=== PATIENT | female | born 1995 | race Hispanic/Latino ===

== ENCOUNTER 2020-09-15 16:37 | Emergency (ER) | payer SELFPAY ==
--- OUTSIDE RECORDS SUMMARY | 2020-09-15 16:41 | XMS REPORT | Continuity of Care Document ---
:1995 Author Organization [facility] t Address [address] [place] [address] Care Team Providers Name Role Phone Unavailable Unavailable Unavailable Problems This patient has no known problems. Allergies, Adverse Reactions, Alerts This patient has no known allergies or adverse reactions. Medications Ordered Filled Start Stop Current Ordering Indication Dosage Frequency Signature Comments Components Source Medication Medication Date Date Medication? Clinician (SIG) Name Name Paroxetine Paroxetine Yes Jessie [address] [facility] 7-03 [facility] morning [address] [facility] Procedures This patient has no known procedures. Encounters Start End Encounter Admission Attending Care Care Encounter Source Date/Time Date/Time Type Type Clinicians Facility Department ID 2020-01-20 2020-01-20 Outpatient [facility] [id number] [facility] 2019-03-02 2019-03-02 [facility] [id number] [facility] 16:00:00 16:00:00 [facility] Medicine Medicine Outpati ent Clinics 2018-10-14 2018-10-14 [facility] [id number] [facility] 11:20:00 11:20:00 [facility] Medicine Medicine Outpati ent Clinics Results This patient has no known results.
--- NOTE | 2020-09-15 17:24 | EDPHYS ---
Physician Documentation [facility] Name: Steff Nation Age: 25 yrs Sex: Female : 1995 Arrival Date: 09/15/2020 Time: 16:40 Bed 24 Private MD: ED Physician Babatunde Garces HPI: 09/15 17:17 This 25 yrs old Female presents to ER via Ambulatory with complaints of jmm Laceration To Leg. 17:17 Onset: The symptoms/episode began/occurred acutely, just prior to arrival. Associated jmm signs and symptoms: Pertinent negatives: deformity, dizziness, heavy bleeding, loss of consciousness, numbness distal to injury, suspected foreign body. The patient has not experienced similar symptoms in the past. Patient states she dropped a beer bottle which shattered and then cut her leg. Unsure on tetanus immunizations. . 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 - Social history:: Smoking status: Reported history of juuling and/or vaping. ROS: 17:17 Constitutional: Negative for fever, chills, and weight loss, Cardiovascular: Negative jmm for chest pain, palpitations, and edema, Respiratory: Negative for shortness of breath, cough, wheezing, and pleuritic chest pain. 17:17 Skin: Positive for laceration(s). 17:17 All other systems are negative. Exam: 17:17 Constitutional: This is a well developed, well nourished patient who is awake, alert, jmm and in no acute distress. Head/Face: atraumatic. Eyes: EOMI, no conjunctival erythema appreciated ENT: Moist Mucus Membranes Neck: Trachea midline, Supple Chest/axilla: Normal chest wall appearance and motion. Cardiovascular: Regular rate and rhythm. No edema appreciated Respiratory: Normal respirations, no respiratory distress appreciated Abdomen/GI: Non distended, soft Back: Normal ROM 17:17 Skin: 4 cm laceration noted to the left lower leg. 17:17 Neuro: Orientation: is normal, Mentation: is normal, Memory: is normal. 17:17 Psych: Behavior/mood is pleasant, cooperative. Vital Signs: 16:46 BP 136 / 83; Pulse 100; Resp 18 S; Temp 97.8(TE); Pulse Ox 100% on R/A; Weight 58.97 kg jd3 (R); Height 5 ft. 4 in. (162.56 cm) (R); Pain 1/10; 16:46 Body Mass Index 22.31 (58.97 kg, 162.56 cm) jd3 Laceration: 17:18 Wound Repair of 4cm ( 1.6in ) subcutaneous laceration to left leg. Distal jmm neuro/vascular/tendon intact. Anesthesia: Local anesthetic administered with 8 mls of 1% lidocaine. Wound prep: Moderate cleansing with betadine by me. Skin closed with 6 4-0 Prolene using simple sutures and sterile technique. Patient tolerated well. MDM: 17:17 Patient medically screened. [facility] 17:19 Data reviewed: vital signs, nurses notes. Counseling: I had a detailed discussion with wendy the patient and/or guardian regarding: the historical points, exam findings, and any diagnostic results supporting the discharge/admit diagnosis, the need for outpatient follow up, to return to the emergency department if symptoms worsen or persist or if there are any questions or concerns that arise at home. ED course: Patient is alert and non toxic in appearance ni the ED. Patient given wound infection return precautions. patient understood and agrees with the plan of care. . 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 Exp: ph 09/17/2021. Lot #: [id number]. } Route: IM; Site: right deltoid; Disposition: 18:44 Co-signature as Attending Physician, Babatunde Garces MD I agree with the assessment and kdr plan of care. Disposition: 09/15/20 17:24 Discharged to Home. Impression: Lower Leg Laceration. - Condition is Stable. - Discharge Instructions: Laceration Care, Adult. - Medication Reconciliation Form, Thank You Letter, Antibiotic Education, Prescription Opioid Use form. - Follow up: Private Physician; When: 7 - 10 days; Reason: Recheck today's complaints, Continuance of care, Re-evaluation by your physician. Signatures: Babatunde Garces MD MD kdr Mickail, Joel, PA PA jmJayshree Khoury, RN RN Anjel Shaikh RN RN Ev Urias RN RN tr6 Corrections: (The following items were deleted from the chart) 17:36 17:24 09/15/2020 17:24 Discharged to Home. Impression: Lower Leg Laceration. Condition tr6 is Stable. Forms are Medication Reconciliation Form, Thank You Letter, Antibiotic Education, Prescription Opioid Use. Follow up: Private Physician; When: 7 - 10 days; Reason: Recheck today's complaints, Continuance of care, Re-evaluation by your physician. [facility]
--- NOTE | 2020-09-15 17:24 | ER ---
Nurse's Notes [facility] Name: Steff Nation Age: 25 yrs Sex: Female : 1995 Arrival Date: 09/15/2020 Time: 16:40 Bed 24 Private MD: Diagnosis: Lower Leg Laceration Presentation: 09/15 16:43 Chief complaint: Patient states: "I work at [employer] and I was cleaning up and I jd3 accedently dropped a 6 pack and it fell and broke and cut my left leg.". Coronavirus screen: At this time, the client does not indicate any symptoms associated with coronavirus-19. Ebola Screen: Patient negative for fever greater than or equal to 101.5 degrees Fahrenheit, and additional compatible Ebola Virus Disease symptoms. Initial Sepsis Screen: Does the patient meet any 2 criteria? No. Patient's initial sepsis screen is negative. Does the patient have a suspected source of infection? No. Patient's initial sepsis screen is negative. Risk Assessment: Do you want to hurt yourself or someone else? Patient reports no desire to harm self or others. Onset of symptoms was September 15, 2020. 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 - Social history:: Smoking status: Reported history of juuling and/or vaping. Assessment: 17:34 General: Appears in no apparent distress. Behavior is calm, cooperative, appropriate tr6 for age. Pain: Complains of pain in left leg. Neuro: No deficits noted. Cardiovascular: No deficits noted. Respiratory: No deficits noted. GI: No deficits noted. : No deficits noted. EENT: No deficits noted. Derm: Wound noted left leg. Musculoskeletal: No deficits noted. Injury Description: Laceration sustained to left leg is bleeding moderately. Vital Signs: 16:46 BP 136 / 83; Pulse 100; Resp 18 S; Temp 97.8(TE); Pulse Ox 100% on R/A; Weight 58.97 kg j (R); Height 5 ft. 4 in. (162.56 cm) (R); Pain 1/10; 16:46 Body Mass Index 22.31 (58.97 kg, 162.56 cm) [facility] ED Course: 16:40 Patient arrived in ED. mr 16:45 Triage completed. [facility] 16:47 Arm band placed on. [facility] 16:52 Shawn Sweet PA is PHCP. [facility] 16:52 Babatunde Garces MD is Attending Physician. [facility] 17:08 Ev Vazquez, RN is Primary Nurse. tr6 Administered Medications: 17:23 Drug: Tetanus-Diphtheria Toxoid Adult 0.5 ml {Medical Practitioners: [employer]. Exp: ph 09/17/2021. Lot #: [id number]. } Route: IM; Site: right deltoid; Outcome: 17:24 Discharge ordered by . [facility] 17:36 Patient left the ED. tr6 Signatures: Shawn Sweet PA PA [facility] Alexandrea Mcwilliams mr RoyJayshree, RN RN Anjel Shaikh RN RN Ev Good, PINA HELLER tr6
[2020-09-15] MEDS ORDERED: TETANUS & DIPHTHERIA TOX,ADULT 0.5 ML VIAL ONE (17:42)
[2020-09-15 18:17] VITALS: BP 136/83; TEMP 97.8; O2SAT 100
== END 2020-09-15 17:36 | disposition home or self-care (01) ==
LOC: ER 16:37
PROC: 0HQLXZZ Repair Left Lower Leg Skin, External Approach (ICD-10-PCS; principal; 2020-09-15)
DX: S81.812A Laceration without foreign body, left lower leg, initial encounter (principal); Z23 Encounter for immunization; F17.290 Nicotine dependence, other tobacco product, uncomplicated; F32.9 Major depressive disorder, single episode, unspecified; W25.XXXA Contact with sharp glass, initial encounter
CPT/HCPCS: 90471; 90714; 99282

== ENCOUNTER 2021-03-08 12:37 | Emergency (ER) | payer SELFPAY ==
--- OUTSIDE RECORDS SUMMARY | 2021-03-08 12:41 | XMS REPORT | Continuity of Care Document ---
:1995 Author Organization [facility] t Address [address] [place] [address] Care Team Providers Name Role Phone Pcp, Does Not Have A Primary Care Physician LJ KUMAR Attending Clinician Unavailable Lj Kumar MD Attending Clinician Mayco SHAH Attending Clinician MAYCO Attending Clinician Unavailable Doctor Unassigned, Name Attending Clinician Unavailable Payers Payer Name Policy Type Policy Number Effective Date Expiration Date S ource Problems Condition Condition Condition Status Onset Resolution Last Treating Co mments Source Name Details Category Date Date Treatment Clinician Date Screen for Screen for Disease Active U naseem STD STD - it[place] of [place] transmit[place] 00 [place] dical d disease) d disease) Br anch Exposure Exposure Disease Active Unive rs to to 09-06 [place]lam[place] [facility] Tobacco Tobacco Disease Active Univers use use 5-26 ity of disorder disorder 00:00: [address] Contracept Contracept Disease Active U naseem leonard leonard 5-21 [place] [facility] Dysmenorrh Dysmenorrh Disease Active U naseem ea ea 3-10 ity of 00:00: [address] Allergies, Adverse Reactions, Alerts Allergy Allergy Status Severity Reaction(s) Onset Inactive Treating Comm ents Source Name Type Date Date Clinician NO KNOWN Drug Active Univers ALLERGIE Class ity of S [facility] Social History Social Habit Start Date Stop Date Quantity Comments Source History of Cigarette Smoker Universi ty of tobacco use [facility] Exposure to Not sure University of SARS-CoV-2 [place] [facility] (event) Branch History SDOH University o f Alcohol [place] [facility] Frequency Branch History SDOH University o f Alcohol Std [place] [facility] Drinks Branch History SDOH University o f Alcohol Binge [place] [facility] al Branch Alcohol intake 2021-01-29 2021-01-29 Current drinker of Un iversity of 00:00:00 00:00:00 alcohol (finding) [facility] edical Branch Alcohol Comment 2021-01-29 2021-01-29 occassionally Univer sity of 00:00:00 00:00:00 [facility] Tobacco use and 2021-01-29 2021-01-29 Never used Universit y of exposure 00:00:00 00:00:00 [facility] Tobacco Comment 2015-09-07 2015-09-07 2-3 cigarettes per U niversity of 00:00:00 00:00:00 day(started 3-4 [place] [facility] ica months ago) Branch Sex Assigned At [birth year] Universit y of 00:00:00 00:00:00 [facility] Smoking Status Start Date Stop Date Source Former smoker 2021-01-29 00:00:00 2021-01-29 00:00:00 Universi ty of [facility] Current every day 2015-09-07 00:00:00 [facility] smoker Medical Branch Medications Ordered Filled Start Stop Current Ordering Indication Dosage Frequency Signature Comments Components Source Medication Medication Date Date Medication? Clinician (SIG) Name Name Nitrofurant 2020-04- Yes [id number] 100mg Take 1 Univers oin&Nit. 0-02-06 capsule by ity of [place] 00:00: 04:59 mouth 2 [place] (MACROBID) 00 :00 (two) Medical 100 mg times Branch capsule daily for 7 days. Nitrofurant 2020-04- Yes [id number] 100mg Take 1 Univers oin&Nit. 0-02-06 capsule by ity of [place] 00:00: 04:59 mouth 2 [place] (MACROBID) 00 :00 (two) Medical 100 mg times Branch capsule daily for 7 days. Paroxetine Paroxetine 0 Yes Jessie [address] [facility] HCl HCl 7-03 [facility] norgestimat 2015-04 Yes 1{tbl} Take 1 Un [place] e-ethinyl 1-09 tablet by ity o f estradiol 00:00: mouth [place] (ORTHO 00 daily. Medical [facility], [place] 28,) 0.18/0.215/ 0.25 mg-35 mcg (28) tablet norgestimat 2015-04 Yes 1{tbl} Take 1 Un [place] e-ethinyl 1-09 tablet by ity o f estradiol 00:00: mouth [place] (ORTHO 00 daily. Medical [facility] [place] [facility],) 0.18/0.215/ 0.25 mg-35 mcg (28) tablet norgestimat 2015-04 Yes 1{tbl} Take 1 Un [place] e-ethinyl 1-09 tablet by ity o f estradiol 00:00: mouth [place] (ORTHO 00 daily. Medical [facility] [place] [facility],) 0.18/0.215/ 0.25 mg-35 mcg (28) tablet Immunizations Ordered Filled Immunization Date Status Comments [facility] e Immunization Name Name Influenza Virus 2020-11-12 Completed Universit y of Vaccine 00:00:00 [facility] Influenza Virus 2020-11-12 Completed Universit y of Vaccine 00:00:00 [facility] TDAP (ADACEL) 2012-11-12 Completed University of VACCINE 00:00:00 [facility] TDAP (ADACEL) 2012-11-12 Completed University of VACCINE 00:00:00 [facility] TDAP (ADACEL) 2012-11-12 Completed University of VACCINE 00:00:00 [facility] Vital Signs Vital Name Observation Time Observation Value Comments Source Systolic blood 2021-01-29 15:08:00 109 mm[Hg] Univer sity of pressure [facility] Diastolic blood 2021-01-29 15:08:00 72 mm[Hg] Unive rsity of pressure [facility] Heart rate 2021-01-29 15:08:00 80 /min Universi ty [facility] Body temperature 2021-01-29 15:08:00 37 [place] [facility] Respiratory rate 2021-01-29 15:08:00 18 /min [facility] Body height 2021-01-29 15:08:00 160 cm [facility] Body weight 2021-01-29 15:08:00 66.225 kg [facility] BMI 2021-01-29 15:08:00 25.86 kg/m2 [facility] Procedures Procedure Date / Time Performed Performing Clinician Sour e ASSIGNMENT OF BENEFITS 2021-01-29 14:52:52 Doctor Unassigned, No [facility] Name [facility] POCT URINALYSIS W/O 2021-01-29 00:00:00 Fracisco Kumar [facility] SPECIFIC GRAVITY [facility] Encounters Start End Encounter Admission Attending Care Care Encounter Source Date/Time Date/Time Type Type Clinicians Facility Department ID 2022-01-29 2022-01-29 Outpatient R FRACISCO KUMAR [facility] [id number] Univers 13:30:00 13:30:00 [id number] ity [facility] 2022-01-29 2022-01-29 Outpatient R FRACISCO KUMAR [facility] [id number] Univers 13:30:00 13:30:00 ity [facility] 2021-02-01 2021-02-01 Telephone Fracisco Kumar [facility] [id number] Univers 00:00:00 00:00:00 Lj Fisher [id number] i ty [facility] [id number] [phone] [place] [address] [place] [address] 2021-01-29 2021-01-29 Office Fracisco Kumar [facility] [id number] Univers 09:54:32 10:43:03 Visit Penelope Price [id number] ity [facility] [id number] [place] [phone] [place] [address] [place] [address] 2021-01-29 2021-01-29 Outpatient R MAYCO [facility] [id number] Univers 09:30:00 09:30:00 PENELOPE ity of [facility] 2021-01-29 2021-01-29 Orders Doctor CATE [id number] Univers 00:00:00 00:00:00 Only Unassigned, ARUNA [id number] ity of [facility] [id number] [place] as [phone] [address] 2020-10-11 2020-10-11 Outpatient [facility] [id number] [facility] 2020-09-12 2020-09-12 Outpatient [facility] [id number] [facility] 2020-01-20 2020-01-20 Outpatient [facility] [id number] [facility] 2019-03-02 2019-03-02 [facility] [id number] [facility] 16:00:00 16:00:00 [facility] Medicine Outpati ent Clinics 2018-10-14 2018-10-14 [facility] [id number] [facility] 11:20:00 11:20:00 [facility] Results Test Description Test Time Test Comments Results Result Comments Source POCT URINALYSIS W/O SPECIFIC GRAVITY 2021-01-29 15:24:00 Test Item Value Reference Range Interpretation Comme nts POCT PH U (test code = 3254) 7 mg/dl 5-8 POCT U LEUK EST (test code = 3263) Trace Negative - Negative POCT U NIT (test code = 3262) Positive Negative - Negative POCT U PROT (test code = 3259) Trace Negative - Negative POCT U GLU (test code = 3256) Negative Negative - Negative POCT U KETONE (test code = 3258) Negative Negative - Negative POCT U BLD (test code = 3257) 5+ Negative - Negative [facility]
[2021-03-08] MEDS ORDERED: ACETAMINOPHEN 500 MG TAB ONE (12:58)
[2021-03-08] MEDS ORDERED: IBUPROFEN 400 MG TAB ONE (12:58)
--- NOTE | 2021-03-08 13:58 | RAD REPORT ---
EXAM DESCRIPTION: RAD - Wrist Right 3 View - 03/08/2021 1:14 pm CLINICAL HISTORY: Right wrist pain FINDINGS: No fracture or dislocation is seen. No bone or joint abnormality noted
--- NOTE | 2021-03-08 14:05 | EDPHYS ---
Physician Documentation [facility] Name: Steff Nation Age: 25 yrs Sex: Female : 1995 Arrival Date: 03/08/2021 Time: 12:41 Bed 15 Private MD: ED Physician Vasquez Marcos HPI: 03/08 13:00 This 25 yrs old Female presents to ER via Ambulatory with complaints of Hand cp Pain. 13:00 The patient or guardian reports pain. The complaints affect the right thumb and ulna cp side of right wrist. Context: resulted from an unknown cause. Onset: The symptoms/episode began/occurred 6 month(s) ago. 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 - Social history:: Smoking status: Reported history of juuling and/or vaping. ROS: 13:05 MS/extremity: Positive for pain, tenderness, of the right thumb and ulna side of right cp wrist, Negative for injury or acute deformity, decreased range of motion, paresthesias. 13:05 Eyes: Negative for injury, pain, redness, and discharge. cp 13:05 Constitutional: Negative for body aches, chills, fever, poor PO intake. Exam: 13:10 Head/Face: Normocephalic, atraumatic. cp 13:10 Constitutional: The patient appears in no acute distress, alert, awake, well developed, well nourished. Vital Signs: 12:52 BP 110 / 66; Pulse 76; Resp 16; Temp 97.7; Pulse Ox 100% on R/A; Weight 65.77 kg (R); aj1 Height 5 ft. 3 in. (160.02 cm) (R); Pain 7/10; 12:52 Body Mass Index 25.69 (65.77 kg, 160.02 cm) aj1 MDM: 12:52 Patient medically screened. cp 14:04 Data reviewed: vital signs, nurses notes, radiologic studies, plain films, and as a cp result, I will discharge patient. 14:04 Test interpretation: by ED physician or midlevel provider: plain radiologic studies. cp 03/08 12:55 Order name: XRAY Wrist RIGHT 3 view; Complete Time: 13:59 cp 03/08 13:59 Interpretation: Report reviewed. cp 03/08 14:00 Order name: Thumb Spica Splint; Complete Time: 14:22 cp Administered Medications: 13:01 Drug: Ibuprofen 800 mg Route: PO; aj1 13:01 Drug: Tylenol 1000 mg Route: PO; aj1 Disposition Summary: 03/08/21 14:04 Discharge Ordered Location: Home cp Problem: new cp Symptoms: have improved cp Condition: Stable cp Diagnosis - Radial styloid tenosynovitis [de Quervain] - right cp Followup: cp - With: Kwabena Conklin MD - When: 1 week - Reason: pain continues Discharge Instructions: - Discharge Summary Sheet cp - De Quervain's Tenosynovitis cp Forms: - Medication Reconciliation Form cp - Thank You Letter cp - Antibiotic Education cp - Prescription Opioid Use cp Prescriptions: - Diclofenac Sodium 75 mg Oral Tablet Sustained Release - take 1 tablet by ORAL route 2 times per day; 30 tablet; Refills: 0, Product cp Selection Permitted Signatures: Dispatcher [employer] EDDahiana Kelly RN RN aj1 Jose Alejandro Onofre PA PA cp
--- NOTE | 2021-03-08 14:05 | ER ---
Nurse's Notes [facility] Name: Steff Nation Age: 25 yrs Sex: Female : 1995 Arrival Date: 03/08/2021 Time: 12:41 Bed 15 Private MD: Diagnosis: Radial styloid tenosynovitis [de Quervain]-right Presentation: 03/08 12:52 Chief complaint: Patient states: Right hand pain for the past 6 months. Today she aj1 started having numbness to her thumb. Coronavirus screen: Vaccine status: Patient reports being unvaccinated. Client denies travel out of the [place] in the last 14 days. Ebola Screen: Patient denies travel to an Ebola-affected area in the 21 days before illness onset. Initial Sepsis Screen: Does the patient meet any 2 criteria? No. Patient's initial sepsis screen is negative. Does the patient have a suspected source of infection? No. Patient's initial sepsis screen is negative. Risk Assessment: Do you want to hurt yourself or someone else? Patient reports no desire to harm self or others. Onset of symptoms was 2020. 12:52 Method Of Arrival: Ambulatory aj1 12:52 Acuity: AUBREY 4 aj1 Triage Assessment: 12:53 General: Appears in no apparent distress. comfortable, Behavior is calm, cooperative, aj1 appropriate for age. Pain: Complains of pain in right hand. 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 - Social history:: Smoking status: Reported history of juuling and/or vaping. Screenin:54 Abuse screen: Denies threats or abuse. Denies injuries from another. Nutritional aj1 screening: No deficits noted. Tuberculosis screening: No symptoms or risk factors identified. 14:23 Fall Risk None identified. aj1 Assessment: 12:54 General: Appears in no apparent distress. comfortable, Behavior is calm, cooperative, aj1 appropriate for age. Pain: Complains of pain in right hand Pain does not radiate. Pain currently is 7 out of 10 on a pain scale. Quality of pain is described as aching, Aggravated by repositioning. Neuro: Level of Consciousness is awake, alert, obeys commands, Oriented to person, place, time, situation. Cardiovascular: Patient's skin is warm and dry. Respiratory: Airway is patent Respiratory effort is even, unlabored, Respiratory pattern is regular, symmetrical. GI: No signs and/or symptoms were reported involving the gastrointestinal system. : No signs and/or symptoms were reported regarding the genitourinary system. EENT: No signs and/or symptoms were reported regarding the EENT system. Derm: No signs and/or symptoms reported regarding the dermatologic system. Skin is pink, warm \T\ dry. normal. Musculoskeletal: Range of motion: intact in all extremities. 14:23 Reassessment: Patient appears in no apparent distress at this time. No changes from aj1 previously documented assessment. Patient and/or family updated on plan of care and expected duration. Pain level reassessed. Patient is alert, oriented x 3, equal unlabored respirations, skin warm/dry/pink. Vital Signs: 12:52 BP 110 / 66; Pulse 76; Resp 16; Temp 97.7; Pulse Ox 100% on R/A; Weight 65.77 kg (R); aj1 Height 5 ft. 3 in. (160.02 cm) (R); Pain 7/10; 12:52 Body Mass Index 25.69 (65.77 kg, 160.02 cm) aj1 ED Course: 12:41 Patient arrived in ED. mr 12:43 Jose Alejandro Onofre PA is PHCP. cp 12:44 Vasquez Marcos MD is Attending Physician. cp 12:52 Dahiana Shafer, RN is Primary Nurse. aj1 12:53 Triage completed. aj1 12:53 Arm band placed on Patient placed in an exam room. aj1 12:54 Patient has correct armband on for positive identification. aj1 12:54 No provider procedures requiring assistance completed. aj1 13:14 XRAY Wrist RIGHT 3 view In Process Unspecified. EDMS 14:01 Kwabena Conklin MD is Referral Physician. cp 14:22 Velcro wrist splint applied to right wrist. [facility] 14:23 Patient did not have IV access during this emergency room visit. aj1 Administered Medications: 13:01 Drug: Ibuprofen 800 mg Route: PO; aj1 13:01 Drug: Tylenol 1000 mg Route: PO; aj1 Outcome: 14:04 Discharge ordered by . keila 14:23 Discharged to home ambulatory. aj1 14:23 Condition: good 14:23 Discharge instructions given to patient, Instructed on discharge instructions, follow up and referral plans. medication usage, Demonstrated understanding of instructions, follow-up care, medications, Prescriptions given X 1. 14:23 Patient left the ED. aj1 Signatures: Dispatcher [employer] Dahiana Duarte RN RN aj1 Alexandrea Mcwilliams Corey, PA PA cp Martinez, Maria [facility]
[2021-03-08 14:35] VITALS: BP 110/66; TEMP 97.7; O2SAT 100
== END 2021-03-08 14:23 | disposition home or self-care (01) ==
LOC: ER 12:37
DX: M65.4 Radial styloid tenosynovitis [de Quervain] (principal); F32.A Depression, unspecified
CPT/HCPCS: 99284

== ENCOUNTER 2021-07-10 18:12 | Emergency (ER) | payer SELFPAY ==
--- OUTSIDE RECORDS SUMMARY | 2021-07-10 18:15 | XMS REPORT | Continuity of Care Document ---
:1995 Author Organization [facility] t Address [address] [place] [address] Care Team Providers Name Role Phone Pcp, Does Not Have A Primary Care Physician Minor Attending Clinician Unavailable Hayley Attending Clinician Unavailable LJ KUMAR Attending Clinician Unavailable Lj Kumar MD Attending Clinician Mayco SHAH Attending Clinician MAYCO Attending Clinician Unavailable Payers Payer Name Policy [...] Exposure Disease Active Unive rs to [place] 5 [place] [facility] Tobacco Tobacco Disease Active Univers use use 5-26 ity of disorder disorder 00:00: [address] Contracept Contracept Disease Active U naseem leonard leonard 5-21 [place] [facility] Dysmenorrh Dysmenorrh Disease Active U naseem ea ea 3-10 ity of 00:00: [address] Allergies, Adverse Reactions, Alerts Allergy Allergy Status Severity Reaction(s) Onset Inactive Treating Comm ents Source Name Type Date Date Clinician NO KNOWN Drug Active Univers ALLERGIE Class ity of S [facility] Social History Social Habit Start Date Stop Date Quantity Comments Source History SDOH University o f Alcohol [place] [facility] Frequency Branch History SDOH University o f Alcohol Std [place] [facility] Drinks Branch History SDOH University o f Alcohol Binge [place] [facility] al Branch Exposure to Not sure University of SARS-CoV-2 [place] [facility] (event) Branch Alcohol intake 2021-01-29 2021-01-29 Current drinker of Un iversity of 00:00:00 00:00:00 alcohol (finding) [facility] edical [place] Alcohol Comment 2021-01-29 2021-01-29 occassionally Univer sity of 00:00:00 00:00:00 [facility] Tobacco use and 2021-01-29 2021-01-29 Never used Universit y of exposure 00:00:00 00:00:00 [facility] Sex Assigned At [birth year] Universit y of 00:00:00 00:00:00 [facility] Smoking Status Start Date Stop Date Source Former smoker 2021-01-29 00:00:00 2021-01-29 00:00:[address] [facility] Medications Ordered Filled Start Stop Current Ordering Indication Dosage Frequency Signature Comments Components Source Medication Medication Date Date Medication? Clinician (SIG) Name Name Nitrofurant 2020-04- No [id number] 100mg Take 1 Univers oin&Nit. 0-18 10-26 capsule by ity of [place] 00:00: 04:59 mouth 2 [place] as (MACROBID) 00 :00 (two) Medical 100 mg times Branch capsule daily for 7 days. Nitrofurant 2020-04- No [id number] 100mg Take 1 Univers oin&Nit. 0-18 10-26 capsule by ity of [place] 00:00: 04:59 mouth 2 [place] as (MACROBID) 00 :00 (two) Medical 100 mg times Branch capsule daily for 7 days. Paroxetine Paroxetine Yes Jessie [address] [facility] [address] HCl HCl 7-03 [facility] norgestimat 2015-04 Yes 1{tbl} Take 1 Un [place] e-ethinyl 1-09 tablet by ity o f estradiol 00:00: mouth [place] (ORTHO 00 daily. Medical TRI-CYCLEN, Branch 28,) 0.18/0.215/ 0.25 mg-35 mcg (28) tablet norgestimat 2015- Yes 1{tbl} Take 1 Un [place] e-ethinyl 1-09 tablet by ity o f estradiol 00:00: mouth [place] (ORTHO 00 daily. Medical [facility]-CYCLEN, [place] 28,) 0.18/0.215/ 0.25 mg-35 mcg (28) tablet Immunizations Ordered Filled Immunization Date Status Comments Sourc e Immunization Name Name Influenza Virus 2020-11-12 Completed Universit y of Vaccine 00:00:00 [facility] Influenza Virus 2020-11-12 Completed Universit y of Vaccine 00:00:00 [facility] TDAP (ADACEL) 2012-11-12 Completed University of VACCINE 00:00:00 [facility] TDAP (ADACEL) 2012-11-12 Completed [facility] VACCINE 00:00:00 [facility] Vital Signs Vital Name Observation Time Observation Value Comments Source Systolic blood 2021-01-29 15:08:00 109 mm[Hg] [facility] Diastolic blood 2021-01-29 15:08:00 72 mm[Hg] [facility] Heart rate 2021-01-29 15:08:00 80 /min [facility] Body temperature 2021-01-29 15:08:00 37 [place] [facility] Respiratory rate 2021-01-29 15:08:00 18 /min [facility] Body height 2021-01-29 15:08:00 160 cm [facility] Body weight 2021-01-29 15:08:00 66.225 kg [facility] BMI 2021-01-29 15:08:00 25.86 kg/m2 [facility] Procedures Procedure Date / Time Performed Performing Clinician Sourc e POCT URINALYSIS W/O 2021-01-29 00:00:00 Fracisco Kumar [facility] SPECIFIC GRAVITY [facility] Encounters Start End Encounter Admission Attending Care Care Encounter Source Date/Time Date/Time Type Type Clinicians Facility Department ID 2021-05-09 Outpatient Minor [facility] [id number] [facility] 13:20:19 Suzi [id number] [facility] 2021-05-09 Outpatient Minor [facility] [id number] 13:09:40 Suzi [id number] [facility] 2021-05-09 Outpatient Hayley [facility] [id number] 11:53:28 Jessie [id number] [facility] 2021-05-09 Outpatient Hayley [facility] [id number] 11:48:09 Jessie [id number] [facility] 2022-01-29 2022-01-29 Outpatient R FRACISCO KUMAR [facility] [id number] Univers 13:30:00 13:30:00 [id number] [facility]22-01-29 2022-01-29 Outpatient R STACY FRACISCO [facility] [id number] Univers 13:30:00 [facility]:30:[facility] 2021-02-01 2021-02-01 Telephone Judith Kumaren [facility] [id number] Univers 00:00:00 00:00:00 Lj Fisher [id number] i ty of [place] [id number] Profess[place] [phone] Pr dical nal [address] [place] [address] 2021-01-29 2021-01-29 Office KumarFracisco Lj [facility] [id number] Univers 09:54:32 10:43:03 Visit Penelope Price [id number] ity [facility] [id number] [place] [phone] Pr dical nal [address] [place] [address] 2021-01-29 2021-01-29 Outpatient R MAYCO [facility] [id number] Univers 09:30:00 09:30:00 PENELOPE [facility] 2020-10-11 2020-10-11 [facility] [id number] [facility]00 [facility] Clinics 2020-09-12 2020-09-12 Outpatient [facility] [id number] [facility] 00:[facility] 00[facility]00 [facility] Clin[facility] 2020-01-20 2020-01-20 Outpatient [facility] [id number] [facility]00 [facility] Outpati ent Clinics 2019-03-02 2019-03-02 [facility] [id number] 16:00:00 16:00:00 [facility] 2018-10-14 2018-10-14 [facility] [id number] 11:20:00 11:20:00 [facility] ent Clinics Results Test Description Test Time [...] code = 3257) 5+ Negative - Negative [facility]
--- NOTE | 2021-07-10 18:59 | ER ---
Nurse's Notes [facility] Name: Steff Nation Age: 25 yrs Sex: Female : 1995 Arrival Date: 07/10/2021 Time: 18:16 Bed 17 Private MD: Diagnosis: Anxiety disorder, unspecified;Other recurrent depressive disorders Presentation: 07/10 18:17 Chief complaint: EMS states: Family friend called stating that patient was wanting to ss stay with them, but they did not want her there. Pt has no complaints at this time. Denies SI/ HI. States that she has been under stress lately. Moved into her moms house in [place] 3 weeks ago and is trying to find a place or someone to stay with. Coronavirus screen: Client denies travel out of the [place] in the last 14 days. Ebola Screen: Patient denies exposure to infectious person. Patient denies travel to an Ebola-affected area in the 21 days before illness onset. Initial Sepsis Screen: Does the patient meet any 2 criteria? No. Patient's initial sepsis screen is negative. Does the patient have a suspected source of infection? No. Patient's initial sepsis screen is negative. Risk Assessment: Do you want to hurt yourself or someone else? Patient reports no desire to harm self or others. Onset of symptoms is unknown. 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 - Social history:: Smoking status: Patient denies any tobacco usage or history of. Patient uses street drugs, marijuana. Screenin:22 Abuse screen: Denies threats or abuse. Denies injuries from another. Nutritional ss screening: No deficits noted. Tuberculosis screening: Never had TB. Fall Risk None identified. Assessment: 18:22 General: Appears comfortable, well groomed, Behavior is calm, cooperative, Denies ss fever, feeling ill, fatigue, chills. Pain: Denies pain. Neuro: Level of Consciousness is awake, alert, obeys commands, Oriented to person, place, time, situation, Fuels Sales Representative are equal bilaterally Pupils are PERRLA. Cardiovascular: Capillary refill < 3 seconds is brisk in bilateral fingers. Respiratory: Airway is patent Respiratory effort is even, unlabored, Respiratory pattern is regular, symmetrical. GI: Patient currently denies diarrhea, nausea, vomiting. : No signs and/or symptoms were reported regarding the genitourinary system. EENT: Oral mucosa is moist. Throat is clear. EENT: gauged ear lobes. Derm: Skin is intact, is healthy with good turgor, Skin is dry, Skin is pink, warm \T\ dry. normal. Musculoskeletal: Range of motion: intact in all extremities, Swelling absent. 18:23 Reassessment: Pt is very calm and cooperative at this time. Denies SI/ HI. Is unsure ss why she is here. EMS states that the family member she was trying to stay with called 911 because they did not want her staying at their house. Vital Signs: 18:17 BP 119 / 80; Pulse 89; Resp 16; Temp 98.5(O); Pulse Ox 100% on R/A; Weight 70.31 kg; ss Height 5 ft. 3 in. (160.02 cm); Pain 0/10; 18:17 Body Mass Index 27.46 (70.31 kg, 160.02 cm) ED Course: 18:16 Patient arrived in ED. ss 18:16 Hany Gresham PA is PHCP. 8 18:16 Abdulkadir Drake DO is Attending Physician. jr8 18:20 Triage completed. ss 18:20 Arm band placed on right wrist. 18:21 Pauline Garcia RN is Primary Nurse. ss 18:22 Patient has correct armband on for positive identification. Bed in low position. Call light in reach. 18:56 Mart Brenner MD is Referral Physician. jr8 19:19 Primary Nurse role handed off by Pauline Garcia, PINA mw2 19:24 Patient did not have IV access during this emergency room visit. aa5 Administered Medications: No medications were administered Outcome: 18:58 Discharge ordered by . jr8 19:23 Discharged to home ambulatory. aa5 19:23 Condition: stable 19:23 Discharge instructions given to patient, Instructed on discharge instructions, follow up and referral plans. Demonstrated understanding of instructions, follow-up care. 19:30 Patient left the ED. aa5 Signatures: Lucero Kaufman RN RN aa5 Pauline Garcia RN RN Hany Acevedo PA PA 8 Maribell Beck mw2 Corrections: (The following items were deleted from the chart) 19:50 19:50 Patient left the ED. aa5 aa5
--- NOTE | 2021-07-10 18:59 | EDPHYS ---
Physician Documentation [facility] Name: Steff Nation Age: 25 yrs Sex: Female : 1995 Arrival Date: 07/10/2021 Time: 18:16 Bed 17 Private MD: ED Physician Abdulkadir Drake HPI: 07/10 19:08 This 25 yrs old Female presents to ER via EMS with complaints of Anxiety. jr8 19:08 Onset: The symptoms/episode began/occurred gradually. Associated signs and symptoms: jr8 The patient has no apparent associated signs or symptoms. Modifying factors: The patient symptoms are alleviated by nothing, the patient symptoms are aggravated by nothing. chronically. This is a 25-year-old female patient that was brought in by EMS after being called out by family and friends from mental health concern. Patient stated that since she quit her job and has been off marijuana. Feels more paranoid, depressed, anxious. Denies hearing or seeing objects or people. Denies suicidal ideations or homicidal ideations.. 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 - Social history:: Smoking status: Patient denies any tobacco usage or history of. Patient uses street drugs, marijuana. ROS: 19:16 Eyes: Negative for injury, pain, redness, and discharge, ENT: Negative for injury, jr8 pain, and discharge, Neck: Negative for injury, pain, and swelling, Cardiovascular: Negative for chest pain, palpitations, and edema, Respiratory: Negative for shortness of breath, cough, wheezing, and pleuritic chest pain, Abdomen/GI: Negative for abdominal pain, nausea, vomiting, diarrhea, and constipation, Back: Negative for injury and pain, MS/Extremity: Negative for injury and deformity, Skin: Negative for injury, rash, and discoloration, Neuro: Negative for headache, weakness, numbness, tingling, and seizure. 19:16 Psych: Positive for anxiety, depression, insomnia, Negative for auditory hallucinations, visual hallucinations, homicidal ideation, suicide gesture, suicidal ideation. Exam: 19:16 Constitutional: This is a well developed, well nourished patient who is awake, alert, jr8 and in no acute distress. Cardiovascular: Regular rate and rhythm with a normal S1 and S2. No gallops, murmurs, or rubs. Normal PMI, no JVD. No pulse deficits. Respiratory: Lungs have equal breath sounds bilaterally, clear to auscultation and percussion. No rales, rhonchi or wheezes noted. No increased work of breathing, no retractions or nasal flaring. Abdomen/GI: Soft, non-tender, with normal bowel sounds. No distension or tympany. No guarding or rebound. No evidence of tenderness throughout. Skin: Warm, dry with normal turgor. Normal color with no rashes, no lesions, and no evidence of cellulitis. MS/ Extremity: Pulses equal, no cyanosis. Neurovascular intact. Full, normal range of motion. Neuro: Awake and alert, GCS 15, oriented to person, place, time, and situation. Cranial nerves II-XII grossly intact. Motor strength 5/5 in all extremities. Sensory grossly intact. Cerebellar exam normal. Normal gait. Psych: Awake, alert, with orientation to person, place and time. Behavior, mood, and affect are within normal limits. Vital Signs: 18:17 BP 119 / 80; Pulse 89; Resp 16; Temp 98.5(O); Pulse Ox 100% on R/A; Weight 70.31 kg; ss Height 5 ft. 3 in. (160.02 cm); Pain 0/10; 18:17 Body Mass Index 27.46 (70.31 kg, 160.02 cm) MDM: 18:16 Patient medically screened. [facility] 18:53 Data reviewed: vital signs, nurses notes, and as a result, I will discharge patient. [facility] Data interpreted: Pulse oximetry: on room air is 100 %. Interpretation: normal. Counseling: I had a detailed discussion with the patient and/or guardian regarding: the historical points, exam findings, and any diagnostic results supporting the discharge/admit diagnosis, the need for outpatient follow up, a psychiatrist, to return to the emergency department if symptoms worsen or persist or if there are any questions or concerns that arise at home. ED course: Had a long conversation with patient about her feelings and what she is going through currently. Patient is obviously anxious and suffers from depression. Nonmedicated at this time. Patient at no point indicated that she is a harm to herself or others. Recommended that she follows up with psychiatry for further definitive care. Patient is good with this and knows that she can come back at any point time if she were to feel worse or if she were to become suicidal or homicidal.. Administered Medications: No medications were administered Disposition: 21:57 Co-signature as Attending Physician, Abdulkadir Drake DO I was immediately available on-site ms3 in the Emergency Department for consultation in the care of the patient.. Disposition Summary: 07/10/21 18:58 Discharge Ordered Location: Home jr8 Problem: new jr8 Symptoms: have improved jr8 Condition: Stable jr8 Diagnosis - Anxiety disorder, unspecified jr8 - Other recurrent depressive disorders jr8 Followup: jr8 - With: Mart Brenner MD - When: 2 - 3 days - Reason: Recheck today's complaints, Continuance of care, Re-evaluation by your physician Discharge Instructions: - Discharge Summary Sheet jr8 - Panic Attack jr8 - Generalized Anxiety Disorder, Adult jr8 - Major Depressive Disorder, Adult jr8 - Managing Depression, Adult jr8 Forms: - Medication Reconciliation Form jr8 - Thank You Letter jr8 - Antibiotic Education jr8 - Prescription Opioid Use jr8 Signatures: Pauline Garcia, RN RN Hany Gresahm PA PA jr8 Abdulkadir Drake DO DO ms3
[2021-07-10 20:01] VITALS: BP 119/80; TEMP 98.5; O2SAT 100
== END 2021-07-10 19:50 | disposition home or self-care (01) ==
LOC: ER 18:12
DX: F33.8 Other recurrent depressive disorders (principal)
CPT/HCPCS: 99283

== ENCOUNTER 2021-07-11 20:45 | Emergency (ER) | payer SELFPAY ==
--- OUTSIDE RECORDS SUMMARY | 2021-07-11 20:48 | XMS REPORT | Continuity of Care Document ---
:1995 Author Organization [facility] t Address [address] [place] [address] Care Team Providers Name Role Phone Pcp, [...] it[place] of [place]lam[place] [facility] Tobacco Tobacco Disease Active Univers use use 5-26 ity of disorder disorder 00:00: [address] Contracept Contracept Disease Active U naseem leonard leonard 5-21 [place] [facility] Dysmenorrh Dysmenorrh Disease Active U naseem ea ea 3-10 ity of 00:00: [address] Allergies, Adverse Reactions, Alerts Allergy Allergy Status Severity Reaction(s) Onset Inactive Treating Comm ents Source Name Type Date Date Clinician NO KNOWN Drug Active Univers ALLERGIE Class ity of S [facility] Social History Social Habit Start Date Stop Date Quantity Comments Source History SDOH University o f Alcohol [place] [facility] Frequency Branch History SDOH University o f Alcohol Std [place] [facility] Drinks Branch History SDOH University o f Alcohol Binge [place] [facility] Exposure to Not sure University of SARS-CoV-2 [place] [facility] (event) [facility] Alcohol intake 2021-01-29 2021-01-29 Current drinker of Un iversity of 00:00:00 00:00:00 alcohol (finding) [facility] edical [place] Alcohol Comment 2021-01-29 2021-01-29 occassionally Univer sity of 00:00:00 00:00:00 [facility] Tobacco use and 2021-01-29 2021-01-29 Never used Universit y of exposure 00:00:00 00:00:00 [facility] Sex Assigned At [birth year] Universit y of 00:00:00 00:00:00 [facility] Smoking Status Start Date Stop Date Source Former smoker 2021-01-29 00:00:00 2021-01-29 00:00:00 Universi ty of [facility] Medications Ordered Filled Start Stop Current Ordering Indication Dosage Frequency Signature Comments Components Source Medication Medication Date Date Medication? Clinician (SIG) Name Name Nitrofurant 2020-04- No [id number] 100mg Take 1 Univers oin&Nit. 0-18 10-26 capsule by ity of [place] 00:00: 04:59 mouth 2 Santiago as (MACROBID) 00 :00 (two) Medical 100 mg times Branch capsule daily for 7 days. Nitrofurant 2020-04- No [id number] 100mg Take 1 Univers oin&Nit. 0-18 10-26 [...] mouth [place] (ORTHO 00 daily. Medical [place], [place] 28,) 0.18/0.215/ 0.25 mg-35 mcg (28) tablet Immunizations Ordered Filled Immunization Date Status Comments Sourc e Immunization Name Name Influenza Virus 2020-11-12 Completed Universit y of Vaccine 00:00:00 [facility] Influenza Virus 2020-11-12 Completed Universit y of Vaccine 00:00:00 [facility] TDAP (ADACEL) 2012-11-12 Completed University of VACCINE 00:00:00 [facility] TDAP (ADACEL) 2012-11-12 Completed [facility] VACCINE 00:00:00 [facility] Vital Signs Vital Name Observation Time Observation Value Comments Source Systolic blood 2021-01-29 15:08:00 109 mm[Hg] [facility] Diastolic blood 2021-01-29 15:08:00 72 mm[Hg] [facility] Heart rate 2021-01-29 15:08:00 80 /min [facility] Body temperature 2021-01-29 15:08:00 37 Trinidad [facility] Respiratory rate 2021-01-29 15:08:00 18 /min [facility] Body height 2021-01-29 15:08:00 160 cm [facility] Body weight 2021-01-29 15:08:00 66.225 kg [facility] BMI 2021-01-29 15:08:00 25.86 kg/m2 [facility] Procedures Procedure Date / Time Performed Performing Clinician Sourc e POCT URINALYSIS W/O 2021-01-29 00:00:00 Fracisco Kumar [facility] SPECIFIC GRAVITY [facility] Encounters Start End Encounter Admission Attending Care Care Encounter Source Date/Time Date/Time Type Type Clinicians Facility Department ID 2021-05-09 Outpatient Minor [facility] [id number] [address] 13:20:19 Suzi [id number] [facility] 2021-05-09 Outpatient Minor [facility] [id number] [address] 13:09:40 Suzi [id number] [facility] 2021-05-09 Outpatient Hayley [facility] [id number] 11:53:28 Jessie [id number] [facility] 2021-05-09 Outpatient Hayley [facility] [id number] 11:48:09 Jessie [id number] [facility] 2022-01-29 2022-01-29 Outpatient R FRACISCO KUMAR [facility] [id number] Univers 13:30:00 13:30:00 [id number] [facility]22-01-29 2022-01-29 Outpatient R STACY FRACISCO [facility] [id number] Univers 13:30:00 [facility] 2021-02-01 2021-02-01 Telephone Judith Kumaren [facility] [id number] Univers 00:00:00 00:00:00 Lj Fisher [id number] i [phone] [place]ical [place] [address] [place] [address] 2021-01-29 2021-01-29 Office KumarFracisco Lj [facility] [id number] Univers 09:54:32 10:43:03 Visit Penelope Price [id number] ity [facility] [id number] [place] [phone] [place]ical [place] [address] [place] [address] 2021-01-29 2021-01-29 Outpatient R MAYCO [facility] [id number] Univers 09:30:00 09:30:00 [facility] 2020-10-11 2020-10-11 Outpatient [facility] [id number] [facility] 00:[facility] 00[facility]00[facility]00 [facility] 2020-09-12 2020-09-12 Outpatient [facility] [id number] [facility] 00:[facility] 00[facility]00 [facility] 2020-01-20 2020-01-20 Outpatient [facility] [id number] [facility] 00[facility]00 [facility] Clin[facility] 2019-03-02 2019-03-02 [facility] [id number] [address] 16:00:00 16:00:00 [facility] 2018-10-14 2018-10-14 [facility] [id number] 11:20:00 11:20:00 [facility] ent Clinics Results Test Description Test Time [...] code = 3257) 5+ Negative - Negative [facility]
[2021-07-11 22:14] LABS: Urine Blood 2+ (Negative); Urine Glucose Negative (Negative); Urine Protein Negative (Negative); Urine Specific Gravity 1.015 (1.005-1.030); Urine pH 7.5 (5.0-7.0)
[2021-07-11 22:24] LABS: Urine Specific Gravity/Preg 1.015 (1.005-1.030)
[2021-07-11 22:28] LABS: Absolute Lymphocytes (CBC) 2.6 K/uL (0.7-4.9); Lymphocytes % 27.9 % (15.3-44.8); MPV 7.6 fL (7.6-11.3); RBC Red Blood Cell Count 4.01 M/uL (3.86-4.86)
[2021-07-11 22:37] LABS: ALT/SGPT 25 U/L (12-78); AST/SGOT 12 U/L (15-37); Albumin 3.7 g/dL (3.4-5.0); Alkaline Phosphatase 91 U/L (45-117); BUN Blood Urea Nitrogen 15 mg/dL (7-18); Bicarbonate 29 mmol/L (21-32); Bilirubin Direct 0.2 mg/dL (0-0.2); Bilirubin Total 0.7 mg/dL (0.2-1.0); Glucose Level 100 mg/dL (74-106); Potassium 3.6 mmol/L (3.5-5.1); Sodium Level 139 mmol/L (136-145)
[2021-07-11 22:52] LABS: Barbiturates NEGATIVE (NEGATIVE); Benzodiazepines NEGATIVE (NEGATIVE); Cocaine NEGATIVE (NEGATIVE); METHAMPHETAM NEGATIVE (NEGATIVE); Methadone NEGATIVE (NEGATIVE); Opiates NEGATIVE (NEGATIVE); Phencyclidine NEGATIVE (NEGATIVE); THC Cannibis POSITIVE (NEGATIVE)
--- NOTE | 2021-07-11 23:03 | ER ---
Nurse's Notes [facility] Name: Steff Nation Age: 25 yrs Sex: Female : 1995 Arrival Date: 07/11/2021 Time: 20:57 Bed 18 Private MD: Diagnosis: Major depressive disorder, recurrent, mild;Bipolar disorder, unspecified Presentation: 07/11 21:38 Chief complaint: Patient states: brought in by EMS. states that she is not sure why lg3 she's even here. her friends were worried about her and called 911. states that she was here yesterday as well. Coronavirus screen: Client denies travel out of the [place] in the last 14 days. At this time, the client does not indicate any symptoms associated with coronavirus-19. Ebola Screen: No symptoms or risks identified at this time. Initial Sepsis Screen: Does the patient meet any 2 criteria? No. Patient's initial sepsis screen is negative. Does the patient have a suspected source of infection? No. Patient's initial sepsis screen is negative. Risk Assessment: Do you want to hurt yourself or someone else? Patient reports no desire to harm self or others. Onset of symptoms is unknown. 21:38 Method Of Arrival: EMS: [facility] lg3 21:38 Acuity: AUBREY 4 lg3 Triage Assessment: 21:40 General: Appears in no apparent distress. comfortable, Behavior is calm, cooperative. lg3 Pain: Denies pain. EENT: No deficits noted. No signs and/or symptoms were reported regarding the EENT system. Neuro: No deficits noted. Level of Consciousness is awake, alert, obeys commands, Oriented to person, place, time, situation. Cardiovascular: No deficits noted. Denies chest pain, shortness of breath. Respiratory: No deficits noted. Airway is patent Trachea midline Respiratory effort is even, unlabored, Respiratory pattern is regular, symmetrical. GI: No deficits noted. No signs and/or symptoms were reported involving the gastrointestinal system. Abdomen is flat, non-distended. : No deficits noted. No signs and/or symptoms were reported regarding the genitourinary system. Derm: No deficits noted. No signs and/or symptoms reported regarding the dermatologic system. Skin is intact, is healthy with good turgor, Skin is dry. Musculoskeletal: No deficits noted. No signs and/or symptoms reported regarding the musculoskeletal system. Circulation, motion, and sensation intact. Range of motion: intact in all extremities. 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 - Social history:: Smoking status: Reported history of juuling and/or vaping. Patient uses alcohol, occasionally. street drugs, marijuana. - Family history:: not pertinent. Screenin:43 Abuse screen: Denies threats or abuse. Denies injuries from another. Nutritional lg3 screening: No deficits noted. Tuberculosis screening: No symptoms or risk factors identified. Fall Risk None identified. Assessment: 22:03 Reassessment: pt vaping in room. RN informed pt not to vape while in the hospital. sm5 22:04 Reassessment: pt states she thinks she has brain cancer for 10 years that has never sm5 been diagnosed. states she thinks she has cancer because she has a bump on the back of her scalp. pt also states she had a "bad vibe" that someone is stalking her. 23:19 Reassessment: No changes from previously documented assessment. Patient and/or family al4 updated on plan of care and expected duration. Pain level reassessed. Patient is alert, oriented x 3, equal unlabored respirations, skin warm/dry/pink. 23:23 General: Appears in no apparent distress. comfortable, Behavior is calm, cooperative. al4 Pain: Denies pain. Neuro: Level of Consciousness is awake, alert, obeys commands, Oriented to person, place, time, situation. Cardiovascular: Capillary refill < 3 seconds Patient's skin is warm and dry. Respiratory: Airway is patent Respiratory effort is unlabored, Respiratory pattern is symmetrical. Musculoskeletal: Circulation, motion, and sensation intact. 23:38 Reassessment: patient discharged with ride from brother in law. al4 Vital Signs: 21:38 BP 140 / 76; Pulse 99; Resp 16 S; Temp 98.0(O); Pulse Ox 100% on R/A; Weight 70.31 kg lg3 (R); Height 5 ft. 3 in. (160.02 cm) (R); Pain 0/10; 23:28 BP 121 / 91; Pulse 91; Resp 16; Pulse Ox 99% ; Pain 0/10; al4 21:38 Body Mass Index 27.46 (70.31 kg, 160.02 cm) lg3 ED Course: 20:57 Patient arrived in ED. vc1 21:06 Erlin Tatum (father) [phone]. mw2 21:40 Triage completed. lg3 21:40 Arm band placed on right wrist. lg3 21:50 Jose Alejandro Cui MD is Attending Physician. jesús 21:54 Zuleyma Barboza, RN is Primary Nurse. sm5 22:03 Patient has correct armband on for positive identification. Bed in low position. Call sm5 light in reach. Side rails up X2. 22:03 Acetaminophen Sent. sm5 22:03 Basic Metabolic Panel Sent. sm5 22:03 CBC with Diff Sent. sm5 22:03 ETOH Level Sent. sm5 22:03 Hepatic Function Sent. sm5 22:03 PT-INR Sent. sm5 22:03 Ptt, Activated Sent. sm5 22:03 Salicylate Sent. sm5 22:18 Urine Drug Screen Sent. sm5 22:39 CT Head Brain wo Cont In Process Unspecified. EDMS 23:02 Mart Brenner MD is Referral Physician. jesús 23:37 No provider procedures requiring assistance completed. IV discontinued, intact, al4 bleeding controlled, No redness/swelling at site. Pressure dressing applied, 20G right ac started by PINA busby. Administered Medications: 23:04 Drug: NS 0.9% 1000 ml Route: IV; Rate: 1 bolus; Site: right antecubital; al4 23:40 Follow up: IV Status: Completed infusion; IV Intake: 500ml al4 Intake: 23:40 IV: 500ml; Total: 500ml. al4 Outcome: 23:02 Discharge ordered by . jesús 23:38 Discharged to home ambulatory. al4 23:38 Condition: stable 23:38 Discharge instructions given to patient, Instructed on discharge instructions, follow up and referral plans. medication usage, Demonstrated understanding of instructions, follow-up care, medications, Prescriptions given X 1. 23:40 Patient left the ED. al4 Signatures: Dispatcher [employer] EDFL Jose Alejandro Cui MD MD cha Westbrook, Maribell 2 Iraida Main, RN RN lg3 Erick Dale al4 Zuleyma Barboza, RN RN sm5 Minerva Bolden RN RN vc1
--- NOTE | 2021-07-11 23:03 | EDPHYS ---
Physician Documentation [facility] Name: Steff Nation Age: 25 yrs Sex: Female : 1995 Arrival Date: 07/11/2021 Time: 20:57 Bed 18 Private MD: ED Physician Jose Alejandro Cui HPI: 07/11 22:05 This 25 yrs old Female presents to ER via EMS with complaints of paranoid, jesús friends and familty worried. 22:05 The patient presents to the emergency department with anxiety, depression, a history of jesús substance abuse. Onset: The symptoms/episode began/occurred at an unknown time. Past psychiatric history: Prior diagnosis: depression. Associated signs and symptoms: The patient has no apparent associated signs or symptoms. Severity of symptoms: At their worst the symptoms were mild in the emergency department the symptoms are unchanged despite home interventions. The patient has experienced similar episodes in the past, multiple times. 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 - Social history:: Smoking status: Reported history of juuling and/or vaping. Patient uses alcohol, occasionally. street drugs, marijuana. - Family history:: not pertinent. ROS: 22:05 Constitutional: Negative for fever, chills, and weight loss, Eyes: Negative for injury, jesús pain, redness, and discharge, ENT: Negative for injury, pain, and discharge, Neck: Negative for injury, pain, and swelling, Cardiovascular: Negative for chest pain, palpitations, and edema, Respiratory: Negative for shortness of breath, cough, wheezing, and pleuritic chest pain, Abdomen/GI: Negative for abdominal pain, nausea, vomiting, diarrhea, and constipation, Back: Negative for injury and pain, : Negative for injury, bleeding, discharge, and swelling, MS/Extremity: Negative for injury and deformity, Skin: Negative for injury, rash, and discoloration, Neuro: Negative for headache, weakness, numbness, tingling, and seizure, Allergy/Immunology: Negative for hives, rash, and allergies, Endocrine: Negative for neck swelling, polydipsia, polyuria, polyphagia, and marked weight changes, Hematologic/Lymphatic: Negative for swollen nodes, abnormal bleeding, and unusual bruising. 22:05 Psych: Positive for anxiety, depression. Exam: 22:05 Constitutional: This is a well developed, well nourished patient who is awake, alert, jesús and in no acute distress. Head/Face: Normocephalic, atraumatic. Eyes: Pupils equal round and reactive to light, extra-ocular motions intact. Lids and lashes normal. Conjunctiva and sclera are non-icteric and not injected. Cornea within normal limits. Periorbital areas with no swelling, redness, or edema. ENT: Nares patent. No nasal discharge, no septal abnormalities noted. Tympanic membranes are normal and external auditory canals are clear. Oropharynx with no redness, swelling, or masses, exudates, or evidence of obstruction, uvula midline. Mucous membranes moist. Neck: Trachea midline, no thyromegaly or masses palpated, and no cervical lymphadenopathy. Supple, full range of motion without nuchal rigidity, or vertebral point tenderness. No Meningismus. Chest/axilla: Normal chest wall appearance and motion. Nontender with no deformity. No lesions are appreciated. Cardiovascular: Regular rate and rhythm with a normal S1 and S2. No gallops, murmurs, or rubs. Normal PMI, no JVD. No pulse deficits. Respiratory: Lungs have equal breath sounds bilaterally, clear to auscultation and percussion. No rales, rhonchi or wheezes noted. No increased work of breathing, no retractions or nasal flaring. Abdomen/GI: Soft, non-tender, with normal bowel sounds. No distension or tympany. No guarding or rebound. No evidence of tenderness throughout. Back: No spinal tenderness. No costovertebral tenderness. Full range of motion. Skin: Warm, dry with normal turgor. Normal color with no rashes, no lesions, and no evidence of cellulitis. MS/ Extremity: Pulses equal, no cyanosis. Neurovascular intact. Full, normal range of motion. Neuro: Awake and alert, GCS 15, oriented to person, place, time, and situation. Cranial nerves II-XII grossly intact. Motor strength 5/5 in all extremities. Sensory grossly intact. Cerebellar exam normal. Normal gait. Psych: Awake, alert, with orientation to person, place and time. Behavior, mood, and affect are within normal limits. 22:36 ECG was reviewed by the Attending Physician. [facility] Vital Signs: 21:38 BP 140 / 76; Pulse 99; Resp 16 S; Temp 98.0(O); Pulse Ox 100% on R/A; Weight 70.31 kg lg3 (R); Height 5 ft. 3 in. (160.02 cm) (R); Pain 0/10; 23:28 BP 121 / 91; Pulse 91; Resp 16; Pulse Ox 99% ; Pain 0/10; al4 21:38 Body Mass Index 27.46 (70.31 kg, 160.02 cm) lg3 MDM: 21:50 Patient medically screened. jesús 22:07 Differential diagnosis: drug withdrawal. acute psychotic break, depression, psychosis jesús secondary to non-compliance. Data reviewed: vital signs, nurses notes, lab test result(s), radiologic studies, CT scan. Data interpreted: monitoring tech: rate is 99 beats/min, rhythm is regular, Pulse oximetry: on room air is 100 %. Counseling: I had a detailed discussion with the patient and/or guardian regarding: the historical points, exam findings, and any diagnostic results supporting the discharge/admit diagnosis, the need for outpatient follow up, for definitive care, a family practitioner, a psychiatrist. 23:02 ED course: ALERT AND ORIENTED X 4 , NO HOMICIDAL , NOT SUICIDAL. [facility] 07/11 21:51 Order name: Acetaminophen; Complete Time: 23: [facility] 07/11 21:51 Order name: Basic Metabolic Panel; Complete Time: 23: [facility] 07/11 21:51 Order name: CBC with Diff; Complete Time: 23:02 [facility] 07/11 21:51 Order name: ETOH Level; Complete Time: 23: [facility] 07/11 21:51 Order name: Hepatic Function; Complete Time: 23: [facility] 07/11 21:51 Order name: PT-INR; Complete Time: 23:08 [facility] 07/11 21:51 Order name: Ptt, Activated; Complete Time: 23:08 [facility] 07/11 21:51 Order name: Salicylate [facility] 07/11 21:51 Order name: Urine Drug Screen; Complete Time: 23:02 [facility] 07/11 21:51 Order name: CT Head Brain wo Cont [facility] 07/11 22:14 Order name: Urine Dipstick-Ancillary; Complete Time: 23:02 EDMS 07/11 22:16 Order name: Urine --Ancillary (enter results); Complete Time: 23:02 mw2 07/11 21:51 Order name: EKG - Nurse/Tech; Complete Time: 22:19 [facility] 07/11 21:51 Order name: IV Saline Lock; Complete Time: 22:03 [facility] 07/11 21:51 Order name: Labs collected and sent; Complete Time: 22:03 [facility] 07/11 21:51 Order name: Suicide Screening ([place]); Complete Time: 22:06 [facility] 07/11 21:51 Order name: Urine Dipstick-Ancillary (obtain specimen); Complete Time: 22:18 [facility] 07/11 21:51 Order name: Urine Test (obtain specimen); Complete Time: 22:18 [facility] EC:36 Rate is 104 beats/min. Rhythm is regular. QRS [place] is Normal. QRS interval is normal. jesús QT interval is normal. No Q waves. T waves are Normal. Clinical impression: Sinus tachycardia and No evidence of ischemia. Interpreted by me. Reviewed by me. Administered Medications: 23:04 Drug: NS 0.9% 1000 ml Route: IV; Rate: 1 bolus; Site: right antecubital; al4 23:40 Follow up: IV Status: Completed infusion; IV Intake: 500ml al4 Disposition Summary: 07/11/21 23:02 Discharge Ordered Location: Home jesús Problem: new jesús Symptoms: have improved jesús Condition: Stable jesús Diagnosis - Major depressive disorder, recurrent, mild jesús - Bipolar disorder, unspecified jesús Followup: jesús - With: Private Physician - When: 2 - 3 days - Reason: Recheck today's complaints, Continuance of care, Re-evaluation by your physician Followup: jesús - With: - When: 2 - 3 days - Reason: Recheck today's complaints, Re-evaluation by your physician Discharge Instructions: - Discharge Summary Sheet jesús - Bipolar 1 Disorder jesús - Major Depressive Disorder, Adult, [id number] jesús - More jesús - Mixed Bipolar Disorder jesús Forms: - Medication Reconciliation Form jesús - Thank You Letter jesús - Antibiotic Education jesús - Prescription Opioid Use jesús Prescriptions: - Hydroxyzine HCl 25 mg Oral Tablet - take 1 tablet by ORAL route every 6 hours As needed; 30 tablet; Refills: 0, jesús Product Selection Permitted Signatures: Dispatcher [employer] Jose Alejandro Joshi MD MD cha Gibson, Lacie RN RN lg3 Erick Dale Sarah, RN RN sm5
[2021-07-11] MEDS ORDERED: NA CHLORIDE 0.9% 1,000 ML ONE (23:04)
[2021-07-11 23:07] LABS: Protime INR 1.12
[2021-07-12 01:08] VITALS: TEMP 98
[2021-07-12 01:15] VITALS: BP 121/91; O2SAT 99
--- NOTE | 2021-07-12 11:58 | RAD REPORT ---
EXAM DESCRIPTION: CT - Head Brain Wo Cont - 07/12/2021 5:12 am CLINICAL HISTORY: 25 years Female MENTAL STATUS CHANGE COMPARISON: None TECHNIQUE: Contiguous axial images of the brain were obtained without the administration of intraven ous contrast.This exam was performed according to our departmental dose-optimization program which in cludes use of Automated Exposure Control, adjustment of the mA and/or kV according to patient size an d/or use of iterative reconstruction technique. DLP: 827 mGy*cm FINDINGS: Brain: No acute intracranial hemorrhage. No extra-axial collection. No mass effect or ara iation. Ventricles: Within normal limits in size. Globes and orbits: No acute abnormality. Bones: No acute osseous finding Paranasal sinuses: Paranasal sinuses are clear. Mastoid air cells: Well pneumatized. Soft tissues: Within normal limits IMPRESSION: No acute intracranial abnormality. Electronically signed by: Justin Aponte DO 07/11/2021 10:46 PM CDT Due to temporary technical issues with the PACS/Fluency reporting system, reports are being signed by the in house radiologist without review as a courtesy to ensure prompt reporting. The interpreting r adiologist is fully responsible for the content of the report.
--- NOTE | 2021-07-16 11:27 | EKG ---
Test Date: 2021-07-11 Test Time: 22:12:08 Trade Embalmer: JUAN JOSE MEASUREMENT RESULTS: Intervals: Rate: 104 WV: 142 QRSD: 80 QT: 334 QTc: 439 House: P: 64 WV: 142 QRS: 70 T: 51 INTERPRETIVE STATEMENTS: Sinus tachycardia Otherwise normal ECG No previous ECG available for comparison Electronically Signed On 07-16-21 11:14:31 CDT by Peter Valdes
== END 2021-07-11 23:40 | disposition home or self-care (01) ==
LOC: ER 20:45
DX: F33.0 Major depressive disorder, recurrent, mild (principal); Z85.841 Personal history of malignant neoplasm of brain
CPT/HCPCS: 36415; 70450; 80048; 80076; 80307; 80320; 80329; 81003; 81025; 85025; 85610; 85730; 93005; 96360; 99284; J7030

== ENCOUNTER 2022-06-03 10:27 | Emergency (ER) | payer OTHER ==
--- OUTSIDE RECORDS SUMMARY | 2022-06-03 10:31 | XMS REPORT | Continuity of Care Document ---
:1995 Author Organization [facility] t Address [address] [place] [address] Care Team Providers Name Role Phone Pcp, Patient Does Not Have A Primary Care Physician [id number] Suzi Gaxiola Attending Clinician Unavailable Jessie Hardy Attending Clinician Unavailable FRACISCO KUMAR Attending Clinician Unavailable Fracisco Kumar MD Attending Clinician Doctor Unassigned, [place] Attending Clinician Unavailable Penelope Mao PA-C Attending Clinician PENELOPE MAO Attending Clinician Unavailable Payers Payer Name Policy Type Policy Number Effective Date Expiration Date S ource Problems Condition Condition Condition Status Onset Resolution Last Treating Co mments Source Name Details Category Date Date Treatment Clinician Date Anxiety Anxiety Disease Active 2021-04 Univers 2-19 ity of 00:00: [address] Cardiac Cardiac Disease Active 2021-04 Univers arrhythmia arrhythmia 2-19 it y of 00:00: [address] Migraine Migraine Disease Active 2021-04 Unive rs 2-19 ity of 00:00: [address] Seasonal Seasonal Disease Active 2021-04 Unive rs allergies allergies 2-19 ity of 00:00: [address] Screen for Screen for Disease Active U nivers STD STD 5-26 ity of ([place]ually [place] transmit[place] 00 Me dical d disease) d disease) Br anch Exposure Exposure Disease Active Unive rs to to 09-06 ity of chlam[place] [facility] Tobacco Tobacco Disease Active Univers use use 09-06 ity of disorder disorder 00:00: [address] Contracept Contracept Disease Active U naseem durane leonard 5-21 [place] [facility] Dysmenorrh Dysmenorrh Disease Active U naseem ea ea 3-10 ity of 00:00: [address] Allergies, Adverse Reactions, Alerts Allergy Allergy Status Severity Reaction(s) Onset Inactive Treating Comm ents Source Name Type Date Date Clinician NO KNOWN Drug Active Univers ALLERGIE Class ity of S [facility] Social History Social Habit Start Date Stop Date Quantity Comments Source History SDOH University o f Alcohol [place] [facility] Frequency Branch History SDOH University o f Alcohol Std [place] [facility] Drinks Branch History SDOH University o f Alcohol Binge [place] [facility] History of Current smoker University of tobacco use [facility] Sex Assigned At Common Sp adele - [facility] Exposure to 2022-03-25 2022-04-04 Not sure University of SARS-CoV-2 00:00:00 09:17:00 [facility] (event) [place] Alcohol intake 2022-04-04 2022-04-04 Current drinker of Un iversity of 00:00:00 00:00:00 alcohol (finding) [facility] edical [place] Tobacco use and 2022-04-04 2022-04-04 Smokeless tobacco Un iversity of exposure 00:00:00 00:00:00 non-user [facility] Alcohol Comment 2021-01-29 2021-01-29 occassionally Univer sity of 00:00:00 00:00:[address] [facility] Smoking Status Start Date Stop Date Source Ex-smoker 2022-04-04 00:00:00 2022-04-04 00:00:[address] [facility] Medications Ordered Filled Start Stop Current Ordering Indication Dosage Frequency Signature Comments Components Source Medication Medication Date Date Medication? Clinician (SIG) Name Name metroNIDAZO 2021-04 Yes [id number] 500mg Take 1 Univers LE (FLAGYL) 2-23 tablet by ity of 500 mg 00:00: mouth [place] tablet 00 every 12 Medical (twelve) Branch hours. PARoxetine 2021-04 Yes 1{tbl} Take 1 Uni vers 20 mg 2-22 tablet by ity of tablet 09:45: mouth [place] 45 every Medical morning. Branch PARoxetine 2021-04 Yes 1{tbl} Take 1 Uni vers 20 mg 2-22 tablet by ity of tablet 09:45: mouth [place] 45 every Medical morning. Branch PARoxetine 2021-04 Yes 1{tbl} Take 1 Uni vers 20 mg 2-22 tablet by ity of tablet 09:45: mouth [place] 45 every Medical morning. Branch PARoxetine 2021-04 Yes 1{tbl} Take 1 Uni vers 20 mg 2-19 tablet by ity of tablet 14:58: mouth [place] 36 every Medical morning. Branch Nitrofurant 2020-04- No [id number] 100mg Take 1 Univers oin&Nit. 0-18 10-26 capsule by ity of [place] 00:00: 04:59 mouth 2 [place] as (MACROBID) 00 :00 (two) Medical 100 mg times Branch capsule daily for 7 days. Nitrofurant 2020-04- No [id number] 100mg Take 1 Univers oin&Nit. 0-18 10-26 capsule by ity of [place] 00:00: 04:59 mouth 2 [place] as (MACROBID) 00 :00 (two) Medical 100 mg times Branch capsule daily for 7 days. Paroxetine Paroxetine Yes Jessie 1 tablet Common HCl HCl 7-03 [facility] 00:00: morning - [facility] Paroxetine Paroxetine No 1{table QD Paroxetine HCl 20 MG HCl 20 MG 7-03 t_in_th HCl 20 MG 00:00: e_morni 00 ng} PARoxetine PARoxetine No 1{table QD PARoxetine HCl 20 MG HCl 20 MG 7-03 t_in_th HCl 20 MG 00:00: e_morni 00 ng} norgestimat 2015-04 Yes 1{tbl} Take 1 Un [place] e-ethinyl 1-09 tablet by ity o f estradiol 00:00: mouth [place] (ORTHO 00 daily. Medical TRI-CYCLEN, Branch 28,) 0.18/0.215/ 0.25 mg-35 mcg (28) tablet norgestimat 2015-04 Yes 1{tbl} Take 1 Un [place] e-ethinyl 1-09 tablet by ity o f estradiol 00:00: mouth [place] (ORTHO 00 daily. [place] [address],) 0.18/0.215/ 0.25 mg-35 mcg (28) tablet norgestimat 2015-04 Yes 1{tbl} Take 1 Un [place] e-ethinyl 1-09 tablet by ity o f estradiol 00:00: mouth [place] (ORTHO 00 daily. [place] [address],) 0.18/0.215/ 0.25 mg-35 mcg (28) tablet norgestimat 2015-04 Yes 1{tbl} Take 1 Un [place] e-ethinyl 1-09 tablet by ity o f estradiol 00:00: mouth [place] (ORTHO 00 daily. [place] [address],) 0.18/0.215/ 0.25 mg-35 mcg (28) tablet norgestimat 2015-04 Yes 1{tbl} Take 1 Un [place] e-ethinyl 1-09 tablet by ity o f estradiol 00:00: mouth [place] (ORTHO 00 daily. [place] [address],) 0.18/0.215/ 0.25 mg-35 mcg (28) tablet norgestimat 2015-04 Yes 1{tbl} Take 1 Un [place]ito e-ethinyl 1-09 tablet by ity o f estradiol 00:00: mouth [place] (ORTHO 00 daily. [place] [address],) 0.18/0.215/ 0.25 mg-35 mcg (28) tablet PARoxetine PARoxetine No 1{table QD PARoxetine HCl 20 MG HCl 20 MG t_in_th HCl 20 MG e_morni ng} Immunizations Ordered Immunization Filled Immunization Date Status Commen ts Source Name Name Influenza Virus 2022-02-02 Completed Universit y of Vaccine 00:00:[address] [facility] Influenza Virus 2022-02-02 Completed Universit y of Vaccine 00:00:[address] [facility] Influenza Virus 2022-02-02 Completed Universit y of Vaccine 00:00:[address] [facility] Influenza Virus 2020-11-12 Completed Universit y of Vaccine 00:00:[address] [facility] Influenza Virus 2020-11-12 Completed Universit y of Vaccine 00:00:[address] [facility] Influenza Virus 2020-11-12 Completed Universit y of Vaccine 00:00:[address] [facility] Influenza Virus 2020-11-12 Completed Universit y of Vaccine 00:00:[address] [facility] Influenza Virus 2020-11-12 Completed Universit y of Vaccine 00:00:[address] [facility] Influenza Virus 2020-11-12 Completed Universit y of Vaccine 00:00:[address] [facility] TDAP (ADACEL) VACCINE 2012-11-12 Completed Uni versity of 00:00:[address] [facility] TDAP (ADACEL) VACCINE 2012-11-12 Completed Uni versity of 00:00:[address] [facility] TDAP (ADACEL) VACCINE 2012-11-12 Completed Uni versity of 00:00:[address] [facility] TDAP (ADACEL) VACCINE 2012-11-12 Completed Uni versity of 00:00:[address] [facility] TDAP (ADACEL) VACCINE 2012-11-12 Completed Uni versity of 00:00:[address] [facility] TDAP (ADACEL) VACCINE 2012-11-12 Completed Uni versity of 00:00:[address] [facility] TD, NOS 2009-11-27 Completed University of 00:00:[address] [facility] Meningococcal 2009-11-27 Completed University of Polysaccharide 00:00:00 [place] [facility]ela (groups A, C, Y and Branc h W-135) conjugate vaccine (MCV4P) TD, NOS 2009-11-27 Completed University of 00:00:[address] [facility] Meningococcal 2009-11-27 Completed University of Polysaccharide 00:00:00 [place] Medi gisela (groups A, C, Y and Branc h W-135) conjugate vaccine (MCV4P) TD, NOS 2009-11-27 Completed University of 00:00:[address] [facility] Meningococcal 2009-11-27 Completed University of Polysaccharide 00:00:00 [place] [facility] gisela (groups A, C, Y and Branc h W-135) conjugate vaccine (MCV4P) TD, NOS 2009-11-27 Completed University of 00:00:[address] [facility] Meningococcal 2009-11-27 Completed University of Polysaccharide 00:00:00 [place] Med[place] gisela (groups A, C, Y and Branc h W-135) conjugate vaccine (MCV4P) Varicella 2007-11-17 Completed University of (varivax)(chicken 00:00:00 [place] M edical pox) Branch HEPATITIS A 2007-11-17 Completed University of 00:00:[address] [facility] Hep B, Adol or Pedi 2007-11-17 Completed Unive rsity of Dosage 00:00:[address] [facility] Varicella 2007-11-17 Completed University of (varivax)(chicken 00:00:00 [place] M edical pox) Branch HEPATITIS A 2007-11-17 Completed University of 00:00:00 [facility] Branch Hep B, Adol or Pedi 2007-11-17 Completed Unive rsity of Dosage 00:00:[address] [facility] Varicella 2007-11-17 Completed University of (varivax)(chicken 00:00:00 [place] M edical pox) Branch HEPATITIS A 2007-11-17 Completed University of 00:00:[address] [facility] Hep B, Adol or Pedi 2007-11-17 Completed Unive rsity of Dosage 00:00:[address] [facility] Varicella 2007-11-17 Completed University of (varivax)(chicken 00:00:00 [place] M edical pox) Branch HEPATITIS A 2007-11-17 Completed University of 00:00:[address] [facility] Hep B, Adol or Pedi 2007-11-17 Completed Unive rsity of Dosage 00:00:[address] [facility] Hep B, Adol or Pedi 2004-03-23 Completed Unive rsity of Dosage 00:00:[address] [facility] Hep B, Adol or Pedi 2004-03-23 Completed Unive rsity of Dosage 00:00:[address] [facility] Hep B, Adol or Pedi 2004-03-23 Completed Unive rsity of Dosage 00:00:[address] [facility] Hep B, Adol or Pedi 2004-03-23 Completed Unive rsity of Dosage 00:00:[address] [facility] Varicella 2004-01-09 Completed University of (varivax)(chicken 00:00:00 [place] M edical pox) Branch DTAP 2004-01-09 Completed University of 00:00:[address] [facility] HEPATITIS A 2004-01-09 Completed University of 00:00:[address] [facility] Hep B, Adol or Pedi 2004-01-09 Completed Unive rsity of Dosage 00:00:[address] [facility] MMR 2004-01-09 Completed University of 00:00:[address] [facility] Varicella 2004-01-09 Completed University of (varivax)(chicken 00:00:00 [place] M edical pox) Branch DTAP 2004-01-09 Completed University of 00:00:[address] [facility] HEPATITIS A 2004-01-09 Completed University of 00:00:00 [facility] Branch Hep B, Adol or Pedi 2004-01-09 Completed Unive rsity of Dosage 00:00:[address] [facility] MMR 2004-01-09 Completed University of 00:00:[address] [facility] Varicella 2004-01-09 Completed University of (varivax)(chicken 00:00:00 [place] M edical pox) Branch DTAP 2004-01-09 Completed University of 00:00:[address] [facility] HEPATITIS A 2004-01-09 Completed University of 00:00:[address] [facility] Hep B, Adol or Pedi 2004-01-09 Completed Unive rsity of Dosage 00:00:[address] [facility] MMR 2004-01-09 Completed University of 00:00:[address] [facility] Varicella 2004-01-09 Completed University of (varivax)(chicken 00:00:00 [place] M edical pox) Branch DTAP 2004-01-09 Completed University of 00:00:[address] [facility] HEPATITIS A 2004-01-09 Completed University of 00:00:[address] [facility] Hep B, Adol or Pedi 2004-01-09 Completed Unive rsity of Dosage 00:00:[address] [facility] MMR 2004-01-09 Completed University of 00:00:[address] [facility] Polio (IPV/OPV) 2003-05-28 Completed Universit y of 00:00:[address] [facility] Polio (IPV/OPV) 2003-05-28 Completed Universit y of 00:00:[address] [facility] Polio (IPV/OPV) 2003-05-28 Completed Universit y of 00:00:[address] [facility] Polio (IPV/OPV) 2003-05-28 Completed Universit y of 00:00:[address] [facility] MMR 1998-09-12 Completed University of 00:00:[address] [facility] MMR 1998-09-12 Completed University of 00:00:[address] [facility] MMR 1998-09-12 Completed University of 00:00:[address] [facility] MMR 1998-09-12 Completed University of 00:00:00 [facility] Branch DTAP 1998-03-09 Completed University of 00:00:00 [place] [facility] Polio (IPV/OPV) 1998-03-09 Completed Universit y of 00:00:00 [facility] Branch DTAP 1998-03-09 Completed University of 00:00:00 [facility] Branch Polio (IPV/OPV) 1998-03-09 Completed Universit y of 00:00:00 [facility] Branch DTAP 1998-03-09 Completed University of 00:00:00 [place] [facility] Polio (IPV/OPV) 1998-03-09 Completed Universit y of 00:00:00 [facility] Branch DTAP 1998-03-09 Completed University of 00:00:00 [facility] Branch Polio (IPV/OPV) 1998-03-09 Completed Universit y of 00:00:[address] [facility] DTAP 1997 Completed University of 00:00:00 [facility] Branch Polio (IPV/OPV) 1997 Completed Universit y of 00:00:[address] [facility] DTAP 1997 Completed University of 00:00:00 [facility] Branch Polio (IPV/OPV) 1997 Completed Universit y of 00:00:00 [facility] Branch DTAP 1997 Completed University of 00:00:00 [facility] Branch Polio (IPV/OPV) 1997 Completed Universit y of 00:00:[address] [facility] DTAP 1997 Completed University of 00:00:00 [facility] Branch Polio (IPV/OPV) 1997 Completed Universit y of 00:00:00 [facility] Branch DTAP 1997 Completed University of 00:00:00 [facility] Branch Polio (IPV/OPV) 1997 Completed Universit y of 00:00:00 [facility] Branch DTAP 1997 Completed University of 00:00:00 [facility] Branch Polio (IPV/OPV) 1997 Completed Universit y of 00:00:[address] [facility] DTAP 1997 Completed University of 00:00:00 [place] [facility] Polio (IPV/OPV) 1997 Completed Universit y of 00:00:[address] [facility] DTAP 1997 Completed University of 00:00:[address] [facility] Polio (IPV/OPV) 1997 Completed Universit y of 00:00:[address] [facility] Vital Signs Vital Name Observation Time Observation Value Comments Source Body temperature 2022-04-04 15:40:00 36.72 [place] Univ ersity of [facility] Respiratory rate 2022-04-04 15:40:00 17 /min Univ ersity of [facility] Body height 2022-04-04 15:40:00 160 cm Universi ty of [facility] Body weight 2022-04-04 15:40:00 68.04 kg Universi ty of [place] [facility] BMI 2022-04-04 15:40:00 26.57 kg/m2 Universi ty of [facility] Systolic blood 2022-04-04 15:40:00 105 mm[Hg] Univer sity of pressure [facility] Diastolic blood 2022-04-04 15:40:00 60 mm[Hg] Unive rsity of pressure [facility] Heart rate 2022-04-04 15:40:00 62 /min Universi ty of [facility] Systolic blood 2021-01-29 15:08:00 109 mm[Hg] Univer sity of pressure [place] [facility] Diastolic blood 2021-01-29 15:08:00 72 mm[Hg] Unive rsity of pressure [facility] Branch Heart rate 2021-01-29 15:08:00 80 /min Universi ty of [facility] Body temperature 2021-01-29 15:08:00 37 [place] Univ ersity of [facility] Respiratory rate 2021-01-29 15:08:00 18 /min Univ ersity of [facility] Body height 2021-01-29 15:08:00 160 cm Universi ty of [place] [facility] Body weight 2021-01-29 15:08:00 66.225 kg Universi ty of [place] [facility] BMI 2021-01-29 15:08:00 25.86 kg/m2 Universi ty of [place] [facility] height 2020-10-11 15:20:00 63.00 [in_i] Common S pirit - [facility] weight 2020-10-11 15:20:00 141.8 [lb_av] Common [facility] temperature 2020-10-11 15:20:00 97.6 [degF] Common [facility] bmi 2020-10-11 15:20:00 25.12 kg/m2 Common S [facility] oximetry 2020-10-11 15:20:00 99 % Common [facility] blood pressure 2020-10-11 15:20:00 125 mm[Hg] Common [facility] - systolic [facility] blood pressure 2020-10-11 15:20:00 73 mm[Hg] Common [facility] - diastolic [facility] height 2020-01-20 14:40:00 63.00 [in_i] Common [facility] weight 2020-01-20 14:40:00 127.6 [lb_av] Common [facility] temperature 2020-01-20 14:40:00 98.1 [degF] Common [facility] bmi 2020-01-20 14:40:00 22.6 kg/m2 Common [facility] oximetry 2020-01-20 14:40:00 100 % [facility] respiratory rate 2020-01-20 14:40:00 18 /min Comm on [facility] blood pressure 2020-01-20 14:40:00 119 mm[Hg] Common [facility] - systolic [facility] blood pressure 2020-01-20 14:40:00 74 mm[Hg] Common [facility] diastolic [facility] Procedures Procedure Date / Time Performed Performing Clinician Sour e ASSIGNMENT OF BENEFITS 2022-04-04 15:19:40 Doctor Unassigned, No [facility] Name Medical Branch POCT URINALYSIS W/O 2021-01-29 00:00:00 [facility] Branch Encounters Start End Encounter Admission Attending Care Care Encounter Source Date/Time Date/Time Type Type Clinicians Facility Department ID 2021-05-09 [facility] [id number] Common 13:20:19 Suzi [id number] [facility] 2021-05-[address] [facility] [id number] Common 13:09:40 Suzi [id number] [facility] 2021-05-[address] [facility] [id number] Common 11:53:28 Jessie [id number] [facility] 2021-05-[address] [facility] [id number] Common 11:48:09 Jessie [id number] [facility] 2022-04-05 2022-04-05 Case Kumar [facility] [id number] Univers 00:00:00 00:00:00 Management Armaan WARNER [id number] ity of [id number] [id number] [address] 2022-04-04 2022-04-04 [id number] Univers 09:30:00 10:08:33 Visit Armaan JOEL [id number] i ty [id number] [id number] Al dical [address] 2022-04-04 2022-04-04 Outpatient R STACY FRACISCO [facility] [id number] Univers 09:30:00 10:08:[address] [facility] 2022-04-04 2022-04-04 Orders Doctor ESPOSITO [id number] Univers 00:00:00 00:00:00 Only Unassigned, ARUNA [id number] ity of [place] [facility] [id number] [place] [phone] [address] 2022-01-29 2022-01-29 Outpatient R STACY FRACISCO [facility] [id number] Univers 13:30:00 13:30:[address] [facility] 2021-02-01 2021-02-01 Telephone Stacy [facility] [id number] Univers 00:00:00 00:00:00 Armaan Joel [id number] i [id number] [id number] Al dical nal [address] [facility] 2021-01-29 2021-01-29 Office Fracisco Kumar [facility] [id number] Univers 09:54:32 10:43:03 Visit Penelope Mao Natalia [id number] ity [facility] [id number] [phone] Al dical nal [address] [facility] 2021-01-29 2021-01-29 Outpatient R MAYCO [facility] [id number] Univers 09:30:00 09:30:00 PENELOPE gao [facility] 2020-10-11 2020-10-11 OFFICE STLMLC STLMLC [id number] Co mmon 00:00:00 00:00:00 VISIT EST Spir it PT LEVEL 3 [facility] 2020-09-12 2020-09-12 (TEL) STLMLC STLMLC [id number] Co mmon 00:00:00 00:00:00 [facility] 2020-01-20 2020-01-20 OFFICE STLMLC STLMLC [id number] Co mmon 00:00:00 00:00:00 VISIT EST Spir it PT LEVEL 3 [facility] 2019-03-02 2019-03-02 [facility] [id number] Common 16:00:00 16:00:[address] [facility] [address] [facility] 2018-10-14 2018-10-14 [facility] [id number] Common 11:20:00 11:20:[address] [facility] [address] [facility] Results Test Description Test Time Test Comments [...] [id number]) 5+ Negative - Negative [facility]
[2022-06-03 11:00] LABS: Urine Blood 2+ (Negative); Urine Glucose Negative (Negative); Urine Protein Negative (Negative)
--- NOTE | 2022-06-03 11:48 | ER ---
Nurse's Notes [facility] Name: Steff Nation Age: 26 yrs Sex: Female : 1995 Arrival Date: 06/03/2022 Time: 10:36 Bed 12 Private MD: Diagnosis: Low back pain Presentation: 06/03 10:45 Chief complaint: Patient states: Low back pain, x 1 day, intermittent, denies jl7 symptoms, tenderness of palpation to left side, radiates to right leg on standing. Coronavirus screen: At this time, the client does not indicate any symptoms associated with coronavirus-19. Ebola Screen: No symptoms or risks identified at this time. Initial Sepsis Screen: Does the patient meet any 2 criteria? No. Patient's initial sepsis screen is negative. Does the patient have a suspected source of infection? No. Patient's initial sepsis screen is negative. Risk Assessment: Do you want to hurt yourself or someone else? Patient reports no desire to harm self or others. Onset of symptoms was June 02, 2022. 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 - Social history:: Smoking status: unknown. Screenin:25 [facility] ED Fall Risk Assessment (Adult) History of falling in the last 3 months, ss including since admission No falls in past 3 months (0 pts). Abuse screen: Denies threats or abuse. Denies injuries from another. Nutritional screening: No deficits noted. Tuberculosis screening: No symptoms or risk factors identified. Assessment: 13:25 General: Appears in no apparent distress. comfortable, Behavior is calm, cooperative. ss Pain: Complains of pain in left low back and lumbar area Pain currently is 3 out of 10 on a pain scale. Quality of pain is described as aching, tender, Is continuous. Neuro: Level of Consciousness is awake, alert, obeys commands, Oriented to person, place, time, situation. Respiratory: Airway is patent Respiratory effort is even, unlabored, Respiratory pattern is regular, symmetrical. Derm: Skin is intact, is healthy with good turgor, Skin is dry, Skin is pink, warm \T\ dry. normal. Musculoskeletal: Circulation, motion, and sensation intact. Range of motion: intact in all extremities. Vital Signs: 10:45 BP 128 / 70; Pulse 78; Resp 17; Temp 98.2; Pulse Ox 100% ; Weight 68.04 kg; Height 5 jl7 ft. 3 in. (160.02 cm); Pain 3/10; 10:45 Body Mass Index 26.57 (68.04 kg, 160.02 cm) jl7 ED Course: 10:36 Patient arrived in ED. rg4 10:42 Remed[facility] Freg[facility]C [facility] kb 10:42 Jamie Hudson MD is Attending Physician. kb 10:48 Triage completed. jl7 10:50 Arm band placed on right wrist. Patient placed in waiting room, Patient notified of jl7 wait time. 12:47 Urine --Ancillary (enter results) Sent. jl7 13:21 Pauline Garcia, PINA is Primary Nurse. ss 13:25 Patient has correct armband on for positive identification. ss 13:58 No provider procedures requiring assistance completed. Patient did not have IV access ss during this emergency room visit. Administered Medications: 13:28 Drug: Ketorolac 30 mg Route: IM; Site: left gluteus; ss 13:45 Follow up: Response: No adverse reaction ss 13:28 Drug: Decadron (dexamethasone) 10 mg Route: IM; Site: right gluteus; ss 13:45 Follow up: Response: No adverse reaction ss Medication: 13:25 VIS not applicable for this client. ss Outcome: 11:48 Discharge ordered by MD. kb 13:58 Discharged to home ambulatory. ss 13:58 Condition: good 13:58 Discharge instructions given to patient, family, Instructed on discharge instructions, follow up and referral plans. medication usage, Demonstrated understanding of instructions, follow-up care, medications, Prescriptions given X 2. 13:58 Patient left the ED. ss Signatures: Remedios Fregoso FNP-C OPERATIONS AND MAINTENANCE TECHNICIAN-Pauline Benavidez RN RN Danika Simpson rg4 Chase, Jahala, RN RN jl7
--- NOTE | 2022-06-03 11:48 | EDPHYS ---
Physician Documentation [facility] Name: Steff Nation Age: 26 yrs Sex: Female : 1995 Arrival Date: 06/03/2022 Time: 10:36 Bed 12 Private MD: ED Physician Jamie Hudson HPI: 06/03 11:45 This 26 yrs old Female presents to ER via Wheelchair with complaints of Back kb Pain. 11:45 The patient presents with pain that is acute, and tenderness. The symptoms are located kb in the low back. Onset: The symptoms/episode began/occurred yesterday. The pain does not radiate. Associated signs and symptoms: The patient has no apparent associated signs or symptoms. The problem was sustained when lifting. Modifying factors: The patient symptoms are alleviated by rest, the patient symptoms are aggravated by any movement. Severity of symptoms: At their worst the symptoms were moderate, in the emergency department the symptoms are unchanged. The patient has not experienced similar symptoms in the past. The patient has not recently seen a physician. 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 - Social history:: Smoking status: unknown. ROS: 11:44 Constitutional: Negative for fever, chills, and weight loss. kb 11:44 Back: Positive for pain at rest, pain with movement, of the lumbar area and left low back. 11:44 All other systems are negative. Exam: 11:44 Constitutional: This is a well developed, well nourished patient who is awake, alert, kb and in no acute distress. Head/Face: Normocephalic, atraumatic. ENT: Moist Mucous membranes Cardiovascular: Regular rate and rhythm with a normal S1 and S2. No gallops, murmurs, or rubs. No pulse deficits. Respiratory: Respirations even and unlabored. No increased work of breathing. Talking in full sentences Abdomen/GI: Soft, non-tender. No distention Skin: Warm, dry with normal turgor. Normal color. MS/ Extremity: Pulses equal, no cyanosis. Neurovascular intact. Full, normal range of motion. Neuro: Awake and alert, GCS 15, oriented to person, place, time, and situation. Moves all extremities. Normal gait. 11:44 Back: pain, that is moderate, of the lumbar area and left low back, ROM is painful, normal spinal alignment noted. Vital Signs: 10:45 BP 128 / 70; Pulse 78; Resp 17; Temp 98.2; Pulse Ox 100% ; Weight 68.04 kg; Height 5 jl7 ft. 3 in. (160.02 cm); Pain 3/10; 10:45 Body Mass Index 26.57 (68.04 kg, 160.02 cm) jl7 MDM: 10:43 Patient medically screened. kb 11:44 Data reviewed: vital signs, nurses notes. kb 11:45 Differential diagnosis: Fracture Pyelonephritis UTI, bulging disc, muscle strain. Test kb considered but Not performed: X-ray: X-ray lumbar spine considered but patient had no injury or trauma. Counseling: I had a detailed discussion with the patient and/or guardian regarding: the historical points, exam findings, and any diagnostic results supporting the discharge/admit diagnosis, lab results, the need for outpatient follow up, a family practitioner, to return to the emergency department if symptoms worsen or persist or if there are any questions or concerns that arise at home. ED course: Patient is a 26-year-old female who presents with low back pain to the middle and left of back. Reports she lifted a heavy box the day before yesterday and the pain started yesterday. On exam she has mild tenderness to lumbar spine and left low back. Ambulates with steady gait. Nontoxic in appearance. Denies any urinary symptoms. Urinalysis reviewed, no UTI. Will discharge home with anti-inflammatories and muscle relaxers. Return precautions given verbal understanding received.. 06/03 10:59 Order name: Urine --Ancillary (enter results) kb 06/03 11:00 Order name: Urine Dipstick-Ancillary; Complete Time: 11:07 EDRI 06/03 10:59 Order name: Urine Dipstick-Ancillary (obtain specimen); Complete Time: 12:47 kb 06/03 11:14 Order name: Urine --Ancillary; Complete Time: 11:36 EDMS 06/03 10:59 Order name: Urine Test (obtain specimen); Complete Time: 12:47 kb Administered Medications: 13:28 Drug: Ketorolac 30 mg Route: IM; Site: left gluteus; ss 13:45 Follow up: Response: No adverse reaction ss 13:28 Drug: Decadron (dexamethasone) 10 mg Route: IM; Site: right gluteus; ss 13:45 Follow up: Response: No adverse reaction ss Disposition: 15:47 Co-signature as Attending Physician, Jamie Hudson MD I reviewed the patient's care rn provided by the Advanced Practice Provider and agree with the diagnosis and treatment plan. Disposition Summary: 06/03/22 11:48 Discharge Ordered Location: Home kb Condition: Stable kb Diagnosis - Low back pain kb Followup: kb - With: Emergency Department - When: As needed - Reason: Worsening of condition Followup: kb - With: Private Physician - When: 2 - 3 days - Reason: Recheck today's complaints, Continuance of care, Re-evaluation by your physician Discharge Instructions: - Discharge Summary Sheet kb - Musculoskeletal Pain kb Forms: - Medication Reconciliation Form kb - Thank You Letter kb - Antibiotic Education kb - Prescription Opioid Use kb Prescriptions: - Diclofenac Sodium 75 mg Oral tablet,delayed release (DR/EC) - take 1 tablet by ORAL route 2 times per day As needed; 30 tablet; Refills: 0, kb Product Selection Permitted - orphenadrine citrate 100 mg Oral Tablet Sustained Release - take 1 tablet by ORAL route 2 times per day As needed; 20 tablet; Refills: 0, kb Product Selection Permitted Signatures: Dispatcher [employer] Remedios Hitchcock, FIELD MAP TECHNICIAN-C FIELD MAP TECHNICIAN-Spb Jamie Hudson MD MD rn Smirch, Shelby, RN RN ss Doc Chase RN RN jl7
[2022-06-03] MEDS ORDERED: KETOROLAC 30 MG/ML INJ ONE (13:27)
[2022-06-03] MEDS ORDERED: dexAMETHasone 10 MG/ML VIAL ONE (13:27)
[2022-06-03 15:12] VITALS: BP 128/70; TEMP 98.2; O2SAT 100
== END 2022-06-03 13:58 | disposition home or self-care (01) ==
LOC: ER 10:27
DX: M54.50 Low back pain, unspecified (principal)
CPT/HCPCS: 81025; 81003; 96372; 99283; J1100